=== PATIENT | male | born 1950 | race Caucasian/White ===

== ENCOUNTER 2021-09-22 12:28 | Inpatient (IN) | payer OTHER, MEDICARE ==
[~2021-09-22] VITALS: Ht 167.6 cm; Wt 68.0 kg
[2021-09-22 12:30] VITALS: BP 184/90
[2021-09-22] MEDS ORDERED: COZAAR 25 MG TA25 M1 PO (12:41)
[2021-09-22] MEDS ORDERED: MELATONIN3 M1 PO (12:41)
[2021-09-22] MEDS ORDERED: PEPCID40 MG PO (12:42)
[2021-09-22] MEDS ORDERED: SEROQUEL 25 MG25 MG PO ×2 (12:42→12:43)
[2021-09-22 12:54] LABS: ABSOLUTE NEUTROPHILS 4.2 thou/uL (1.4-8.2); BASOPHILS 0.7 % (0.0-2.0); EOSINOPHILS 2.3 % (0.0-3.0); HEMATOCRIT 30.7 % (42.0-52.0); HEMOGLOBIN 10.5 gm/dL (14.0-18.0); LYMPHOCYTES 19.2 % (24.0-44.0); MCH 29.2 pg (26.0-34.0); MCHC 34.2 g/dL (28.0-37.0); MCV 85.3 fL (80.0-100.0); MONOCYTES 4.6 % (1.0-8.0); PLATELET COUNT 315 thou/uL (150-400); POLYS 73.2 % (36.0-66.0); RBC 3.59 mil/uL (4.50-6.00); RDW 13.2 % (10.5-14.5); WBC 5.7 thou/uL (4.0-11.0)
[2021-09-22 13:04] LABS: CREATININE 2.9 mg/dL (0.7-1.3); POTASSIUM 3.5 mmol/L (3.5-5.1)
--- NOTE | 2021-09-22 13:04 | EKG ---
[place] [address] [facility] [employer] [place] [address] ELECTROCARDIOGRAM REPORT Name: SCOTT ZAVALA Room #: [facility] M.R.#: [id number] Admission: Attend Phys: Discharge: Date of : 48 Report #: [id number] [facility] [place], [place] ED Test Date: 2021-09-22 Test Time: 12:50:31 Pat Name: SCOTT ZAVALA Department: Room: Gender: Primer Inserting Machine Adjuster: : 1950 Requested By: Mary Anne Arora Order Number: [id number] MD: Maurisio Munoz Measurements Intervals Reeders Rate: 76 P: 81 VA: 164 QRS: -40 QRSD: 88 T: 60 QT: 373 QTc: 420 Interpretive Statements Sinus rhythm Left axis deviation No previous ECG available for comparison Electronically Signed On 09-22-2021 13:04:24 DIVINITY PROFESSOR by Maurisio Munoz [email or web address] <ELECTRONICALLY SIGNED> By: Maurisio Munoz MD, [facility] 09/22/21 1304 1250 1250 Maurisio Munoz MD, FACC /EPI
[2021-09-22 13:13] LABS: ALBUMIN 3.4 g/dL (3.4-5.0); TOTAL BILIRUBIN 0.7 mg/dL (0.2-1.0); TOTAL PROTEIN 6.6 g/dL (6.4-8.2)
[2021-09-22 13:15] LABS: CALCIUM 12.1 mg/dL (8.5-10.1)
[2021-09-22 14:14] LABS: URINE BILIRUBIN NEGATIVE (Negative); URINE BLOOD NEGATIVE (Negative); URINE CLARITY CLEAR; URINE COLOR YELLOW; URINE GLUCOSE-RANDOM* NEGATIVE (Negative); URINE KETONES NEGATIVE (Negative); URINE LEUKOCYTES-REFLEX NEGATIVE (Negative); URINE NITRITE-REFLEX NEGATIVE (Negative); URINE PROTEIN (DIPSTICK) NEGATIVE (Negative); URINE UROBILINOGEN 0.2 E.U./dl (0.2-1.0)
[2021-09-22 19:09] LABS: ALBUMIN 3.4 g/dL (3.4-5.0); CALCIUM 11.3 mg/dL (8.5-10.1); CREATININE 2.7 mg/dL (0.7-1.3); PHOSPHORUS 3.8 mg/dL (2.5-4.9); POTASSIUM 3.1 mmol/L (3.5-5.1)
[2021-09-23 05:59] LABS: ABSOLUTE NEUTROPHILS 6.5 thou/uL (1.4-8.2); BASOPHILS 0.5 % (0.0-2.0); HEMATOCRIT 33.2 % (42.0-52.0); HEMOGLOBIN 11.2 gm/dL (14.0-18.0); LYMPHOCYTES 10.5 % (24.0-44.0); MCH 28.8 pg (26.0-34.0); MCHC 33.7 g/dL (28.0-37.0); MCV 85.5 fL (80.0-100.0); MONOCYTES 4.2 % (1.0-8.0); PLATELET COUNT 340 thou/uL (150-400); POLYS 83.8 % (36.0-66.0); RBC 3.89 mil/uL (4.50-6.00); RDW 13.5 % (10.5-14.5); WBC 7.7 thou/uL (4.0-11.0)
[2021-09-23 06:23] LABS: % SATURATION 9 % (20-39); IRON 23 ug/dL (65-175); TIBC 257 ug/dL (250-450)
[2021-09-23 06:55] LABS: FOLIC ACID 10.4 ng/mL (8.6-58.9)
[2021-09-23] MEDS ORDERED: LOSARTAN-HCTZ1 EAC2 PO (07:54)
[2021-09-23] MEDS ORDERED: SEROQUEL 25 MG25 MG PO (08:03)
[2021-09-23 08:22] VITALS: BP 183/76
[2021-09-23 10:10] LABS: ALBUMIN 3.4 g/dL (3.4-5.0); CREATININE 2.6 mg/dL (0.7-1.3); MAGNESIUM 2.6 mg/dL (1.8-2.4); PHOSPHORUS 2.8 mg/dL (2.6-4.7); POTASSIUM 3.7 mmol/L (3.5-5.1); TOTAL BILIRUBIN 0.9 mg/dL (0.2-1.0); TOTAL PROTEIN 6.9 g/dL (6.4-8.2)
[2021-09-23 11:25] LABS: ABSOLUTE RETIC COUNT 0.0186 10^6/uL; OBSERVED RETIC COUNT 0.48 % (0.6-2.6)
[2021-09-23 19:07] LABS: PSA 6.2 ng/mL (0.0-4.0)
[2021-09-23 20:18] VITALS: BP 147/70
[2021-09-23 21:03] VITALS: BP 165/82
[2021-09-24 00:15] VITALS: BP 175/74
[2021-09-24 07:08] LABS: GLYCOHEMOGLOBIN (HGB A1C) 5.9 % (4.8-5.6)
[2021-09-24 07:55] LABS: ABSOLUTE NEUTROPHILS 6.2 thou/uL (1.4-8.2); BASOPHILS 0.7 % (0.0-2.0); EOSINOPHILS 2.7 % (0.0-3.0); HEMATOCRIT 28.8 % (42.0-52.0); HEMOGLOBIN 9.7 gm/dL (14.0-18.0); LYMPHOCYTES 13.7 % (24.0-44.0); MCH 28.8 pg (26.0-34.0); MCHC 33.6 g/dL (28.0-37.0); MCV 85.7 fL (80.0-100.0); MONOCYTES 4.5 % (1.0-8.0); POLYS 78.4 % (36.0-66.0); RBC 3.36 mil/uL (4.50-6.00); RDW 13.7 % (10.5-14.5); WBC 7.9 thou/uL (4.0-11.0)
[2021-09-24 08:08] LABS: PLATELET COUNT 260 thou/uL (150-400)
[2021-09-24 08:27] LABS: ALBUMIN 2.8 g/dL (3.4-5.0); CALCIUM 11.2 mg/dL (8.5-10.1); CREATININE 2.3 mg/dL (0.7-1.3); MAGNESIUM 2.3 mg/dL (1.8-2.4); POTASSIUM 3.2 mmol/L (3.5-5.1); TOTAL BILIRUBIN 0.8 mg/dL (0.2-1.0); TOTAL PROTEIN 6.1 g/dL (6.4-8.2)
[2021-09-24 08:29] VITALS: BP 168/79
[2021-09-24 09:21] LABS: CALCIUM 11.4 mg/dL (8.5-10.1); CREATININE 2.4 mg/dL (0.7-1.3); PHOSPHORUS 3.5 mg/dL (2.5-4.9)
[2021-09-24 12:58] VITALS: BP 168/79
[2021-09-24 14:07] LABS: CEA 1.8 ng/mL (0.0-4.7)
[2021-09-24 16:56] VITALS: BP 183/70
[2021-09-24 19:16] VITALS: BP 194/70
[2021-09-24 20:06] LABS: IgA 258 mg/dL (61-437); IgG 688 mg/dL (603-1613); IgM 41 mg/dL (15-143)
[2021-09-25 03:09] LABS: HEMATOCRIT 27.2 % (42.0-52.0); HEMOGLOBIN 9.3 gm/dL (14.0-18.0); MCH 29.6 pg (26.0-34.0); MCHC 34.3 g/dL (28.0-37.0); MCV 86.4 fL (80.0-100.0); RBC 3.15 mil/uL (4.50-6.00); RDW 13.3 % (10.5-14.5)
[2021-09-25 04:07] LABS: CALCIUM 10.7 mg/dL (8.5-10.1); CREATININE 2.1 mg/dL (0.7-1.3); POTASSIUM 3.1 mmol/L (3.5-5.1)
[2021-09-25 08:18] VITALS: BP 165/57
[2021-09-25 10:08] LABS: KAPPA FREE LIGHT CHAINS 31.9 mg/L (3.3-19.4); KAPPA/LAMBDA RATIO 1.17 (0.26-1.65); LAMBDA FREE LIGHT CHAINS 27.3 mg/L (5.7-26.3)
[2021-09-25 11:42] VITALS: BP 168/58
[2021-09-25 13:08] LABS: GLOBULIN TOTAL 2.6 g/dL (2.2-3.9); M-SPIKE Not Observed g/dL (Not Observed)
[2021-09-25 16:18] VITALS: BP 174/86
[2021-09-25 19:48] VITALS: BP 177/79
[2021-09-26 03:26] VITALS: BP 134/63
[2021-09-26 03:41] VITALS: BP 134/73
[2021-09-26 03:44] LABS: HEMATOCRIT 26.7 % (42.0-52.0); HEMOGLOBIN 9.2 gm/dL (14.0-18.0); MCHC 34.5 g/dL (28.0-37.0); RBC 3.19 mil/uL (4.50-6.00); RDW 13.2 % (10.5-14.5); WBC 6.7 thou/uL (4.0-11.0)
[2021-09-26 04:58] LABS: ALBUMIN 2.6 g/dL (3.4-5.0); CALCIUM 9.6 mg/dL (8.5-10.1); CREATININE 1.8 mg/dL (0.7-1.3); PHOSPHORUS 2.7 mg/dL (2.5-4.9); POTASSIUM 3.4 mmol/L (3.5-5.1)
[2021-09-26 07:14] VITALS: BP 157/82
[2021-09-26 15:08] LABS: KAPPA/LAMBDA RATIO 1.16 (0.26-1.65); LAMBDA FREE LIGHT CHAINS 27.7 mg/L (5.7-26.3)
[2021-09-26 15:11] VITALS: BP 156/77
[2021-09-26 18:57] VITALS: BP 173/78
[2021-09-27 07:00] VITALS: BP 162/90
[2021-09-27 07:44] LABS: HEMATOCRIT 30.8 % (42.0-52.0); HEMOGLOBIN 10.2 gm/dL (14.0-18.0); MCH 28.5 pg (26.0-34.0); MCHC 33.3 g/dL (28.0-37.0); MCV 85.6 fL (80.0-100.0); RBC 3.6 mil/uL (4.50-6.00); RDW 13.1 % (10.5-14.5); WBC 6.4 thou/uL (4.0-11.0)
[2021-09-27 08:02] LABS: ALBUMIN 2.7 g/dL (3.4-5.0); CALCIUM 9.9 mg/dL (8.5-10.1); CREATININE 1.7 mg/dL (0.7-1.3); PHOSPHORUS 2.5 mg/dL (2.6-4.7); POTASSIUM 3.5 mmol/L (3.5-5.1)
[2021-09-27 13:00] VITALS: BP 165/85
[2021-09-27 13:01] VITALS: BP 165/85
[2021-09-27 15:06] VITALS: BP 173/90
[2021-09-27] MEDS ORDERED: CLONIDINE1 EACH TRANSDERM (15:38)
[2021-09-27] MEDS ORDERED: FLOMAX0.4 MG PO (15:38)
[2021-09-27] MEDS ORDERED: SEROQUEL 50 MG50 MG PO (15:41)
[2021-09-27] MEDS ORDERED: SEROQUEL 25 MG25 M1 PO ×2 (15:41)
[2021-09-27 16:57] VITALS: BP 173/90
--- NOTE | 2021-10-04 11:51 | HC ---
[facility] [place] [address] CONSULTATION Name: SCOTT ZAVALA Room #: 452-P [facility] M.R.#: [id number] Admission: 09/22/21 Attend Phys: Sayda Montenegro MD Discharge: 09/27/21 Date of : 48 Report #: [id number] THIS REPORT FOR: cc: Joselyn Gonsales MD, Nicolle MD Khosla,Manuel Collado MD ~ DATE OF SERVICE: 09/23/2021 HISTORY OF PRESENT ILLNESS: This is a 71-year-old male patient who was evaluated by me for a confusing history. He is completely sedated and he will not even talk to me. He will not wake up for me. He will not move anything for me. No family member is here and the history is from the record as well as talking to Dr. Montenegro. I reviewed the notes also. This patient was admitted with aggressive behavior. On evaluation, he was found to have hypercalcemia. Either he has urinary incontinence or he has increased frequency of the urine and he has been urinating all over the place as I understand. He is worried that he has a UTI. He was also noticed to be in renal failure and the patient's is also admitted and we have been unable to contact her. Hypercalcemia has been persistent and in spite of giving him a significant amount of fluids, hypercalcemia persists. He received multiple sedating medications and I could not wake him up. REVIEW OF SYSTEMS: Indicates that he had some yessica. He had some scalp laceration. He had some injury there, but I do not know what workup was done because I do not have any records in that regard. I do not know whether the patient's spine was checked or not that time. Apparently, the best I understand he was living at home, then he has this pretty acute in onset of this problem and then he was diagnosed with dementia. I do not know how established the diagnosis of dementia was. He was here for agitation and combative behavior. This is all 14-point review of system, I can get. PAST MEDICAL HISTORY: Unavailable except as summarized above. Apparently, he does have some chronic kidney disease. FAMILY HISTORY: Unavailable. SOCIAL HISTORY: He has a , but is also admitted to the hospital and we have not been able to reach the . PHYSICAL EXAMINATION: GENERAL: Very limited. He did not wake up. He did not say a single word. He does not appear to be in respiratory distress. He does not move anything and he can take appropriate position for reflexes. CARDIAC: Unremarkable. RESPIRATORY: Unremarkable. VITAL SIGNS: Blood pressure is 129/64, respirations 23, pulse is 76. [facility] [address] [place] [address] CONSULTATION Name: SCOTT ZAVALA Room #: 452-P [facility] M.R.#: [id number] Admission: 09/22/21 Attend Phys: Sayda Montenegro MD Discharge: 09/27/21 Date of : 48 Report #: [id number] LABORATORY DATA: White count is 7.7. He does not appear to have any UTI. He did have a CT scan of the head on admission, which showed diffuse atrophy and yessica. IMPRESSION AND PLAN: I discussed with Dr. Montenegro. As I understand, his yessica can come out. If it can come out, we can try to do some workup. MRI and EEG will be the mainstay of the workup. However, the patient is not moving much as far as his arms or legs is concern and because of that, I think it may be desirable to do the C-spine to make sure he did not injure his spine. Thank you very much for this referral and we will follow the patient along with you. <ELECTRONICALLY SIGNED> By: Manuel Deutsch MD 10/04/21 1151 1253 2231 Manuel Deutsch MD /nt
== END 2021-09-27 18:00 | DRG 91 ==
LOC: ER 12:28 → EROBS 15:14 → 4S 15:14 → 4W 09-26 04:59
PROVIDERS: Hospitalist; Internal Medicine; Physician Assistant; ADMIT Internal Medicine; ATTEND Internal Medicine
DX: G92.8 Other toxic encephalopathy (principal); N17.0 Acute kidney failure with tubular necrosis; E83.52 Hypercalcemia; E87.6 Hypokalemia; D50.9 Iron deficiency anemia, unspecified; Z20.822 Contact with and (suspected) exposure to COVID-19; F03.90 Unspecified dementia, unspecified severity, without behavioral disturbance, psychotic disturbance, mood disturbance, and anxiety; K21.9 Gastro-esophageal reflux disease without esophagitis; N40.0 Benign prostatic hyperplasia without lower urinary tract symptoms; N18.30 Chronic kidney disease, stage 3 unspecified; I16.0 Hypertensive urgency; Z66 Do not resuscitate; Z77.29 Contact with and (suspected) exposure to other hazardous substances; R41.0 Disorientation, unspecified; E86.0 Dehydration; R53.81 Other malaise; R26.89 Other abnormalities of gait and mobility; I12.9 Hypertensive chronic kidney disease with stage 1 through stage 4 chronic kidney disease, or unspecified chronic kidney disease; T50.2X5A Adverse effect of carbonic-anhydrase inhibitors, benzothiadiazides and other diuretics, initial encounter; T45.2X5A Adverse effect of vitamins, initial encounter; Y92.89 Other specified places as the place of occurrence of the external cause; Z79.899 Other long term (current) drug therapy
CPT/HCPCS: 10045; 10100

== ENCOUNTER 2021-09-27 16:41 | Inpatient (IN) | payer OTHER, MEDICARE ==
[~2021-09-27] VITALS: Ht 167.6 cm; Wt 68.0 kg
[~2021-09-27 16:41] MED LIST: CLONIDINE1 EACH TRANSDERM; COZAAR 25 MG TA25 M1 PO; FLOMAX0.4 MG PO; LOSARTAN-HCTZ1 EAC2 PO; MELATONIN3 M1 PO; PEPCID40 MG PO; SEROQUEL 25 MG25 M1 PO; SEROQUEL 25 MG25 MG PO; SEROQUEL 50 MG50 MG PO
[2021-09-27 17:07] VITALS: BP 173/83
[2021-09-27 18:12] VITALS: BP 151/98
[2021-09-27 18:20] VITALS: BP 151/98
[2021-09-27 21:30] VITALS: BP 156/82
[2021-09-28 05:40] LABS: HEMATOCRIT 31.2 % (42.0-52.0); HEMOGLOBIN 10.5 gm/dL (14.0-18.0); MCH 28.7 pg (26.0-34.0); MCHC 33.6 g/dL (28.0-37.0); MCV 85.5 fL (80.0-100.0); RBC 3.64 mil/uL (4.50-6.00); RDW 13.1 % (10.5-14.5); WBC 8.5 thou/uL (4.0-11.0)
[2021-09-28 05:55] LABS: CALCIUM 9.9 mg/dL (8.5-10.1); CREATININE 1.8 mg/dL (0.7-1.3); POTASSIUM 3.2 mmol/L (3.5-5.1)
[2021-09-28 06:25] LABS: ALBUMIN 3.1 g/dL (3.4-5.0); PHOSPHORUS 2.8 mg/dL (2.5-4.9)
[2021-09-28 10:34] VITALS: BP 160/94
[2021-09-28 20:00] VITALS: BP 136/64
[2021-09-30 08:40] VITALS: BP 123/66
[2021-09-30 20:45] VITALS: BP 146/65
[2021-10-01 05:54] LABS: ABSOLUTE NEUTROPHILS 4.2 thou/uL (1.4-8.2); HEMATOCRIT 27.6 % (42.0-52.0); HEMOGLOBIN 9.4 gm/dL (14.0-18.0); LYMPHOCYTES 23.1 % (24.0-44.0); MCH 28.6 pg (26.0-34.0); MCV 84.2 fL (80.0-100.0); MONOCYTES 7.2 % (1.0-8.0); PLATELET COUNT 342 thou/uL (150-400); POLYS 63.7 % (36.0-66.0); RBC 3.28 mil/uL (4.50-6.00); RDW 13.2 % (10.5-14.5); WBC 6.7 thou/uL (4.0-11.0)
[2021-10-01 05:59] LABS: CALCIUM 9.8 mg/dL (8.5-10.1); CREATININE 1.9 mg/dL (0.7-1.3); MAGNESIUM 2.1 mg/dL (1.8-2.4); POTASSIUM 3.6 mmol/L (3.5-5.1)
[2021-10-01 08:00] VITALS: BP 122/70
[2021-10-02 08:00] VITALS: BP 119/61
[2021-10-02 15:22] LABS: URINE BILIRUBIN NEGATIVE (Negative); URINE BLOOD TRACE (Negative); URINE CLARITY CLEAR; URINE COLOR YELLOW; URINE GLUCOSE-RANDOM* TRACE (Negative); URINE KETONES NEGATIVE (Negative); URINE NITRITE-REFLEX NEGATIVE (Negative); URINE PROTEIN (DIPSTICK) NEGATIVE (Negative); URINE UROBILINOGEN 0.2 E.U./dl (0.2-1.0)
[2021-10-02 15:25] LABS: URINE LEUKOCYTES-REFLEX 1+ (Negative)
[2021-10-02 16:50] LABS: CASTS None Seen /LPF (None Seen); SQUAMOUS 0-3 Few /LPF (0-3); URINE RBC 1-2 Rare /HPF (NONE SEEN); URINE WBC-REFLEX >25 Many /HPF (0-5); WBC CLUMPS Few (None Seen)
[2021-10-02 16:51] LABS: CRYSTALS None Seen /LPF (None Seen)
[2021-10-02 19:37] VITALS: BP 169/93
[2021-10-03 08:00] VITALS: BP 126/62
[2021-10-03 19:37] VITALS: BP 141/79
[2021-10-04 05:55] LABS: BASOPHILS 0.5 % (0.0-2.0); HEMATOCRIT 27.4 % (42.0-52.0); HEMOGLOBIN 9.2 gm/dL (14.0-18.0); LYMPHOCYTES 12.6 % (24.0-44.0); MCH 28.4 pg (26.0-34.0); MCHC 33.4 g/dL (28.0-37.0); MCV 85.1 fL (80.0-100.0); MONOCYTES 4.8 % (1.0-8.0); PLATELET COUNT 372 thou/uL (150-400); POLYS 80.1 % (36.0-66.0); RBC 3.22 mil/uL (4.50-6.00); RDW 13.4 % (10.5-14.5); WBC 11.3 thou/uL (4.0-11.0)
[2021-10-04 06:12] LABS: CREATININE 1.7 mg/dL (0.7-1.3); MAGNESIUM 2.1 mg/dL (1.8-2.4)
[2021-10-04 07:11] VITALS: BP 118/56
[2021-10-04 17:25] VITALS: BP 136/56
[2021-10-04 21:17] VITALS: BP 121/65
[2021-10-05 08:00] VITALS: BP 132/70
[2021-10-05 20:00] VITALS: BP 115/61
[2021-10-06 07:30] VITALS: BP 123/57
[2021-10-06 19:35] VITALS: BP 117/51
[2021-10-07 08:00] VITALS: BP 120/61
[2021-10-07 13:25] LABS: HEMATOCRIT 29.9 % (42.0-52.0); HEMOGLOBIN 9.8 gm/dL (14.0-18.0); MCH 28.3 pg (26.0-34.0); MCHC 32.7 g/dL (28.0-37.0); MCV 86.3 fL (80.0-100.0); RBC 3.47 mil/uL (4.50-6.00); RDW 13.7 % (10.5-14.5); WBC 6.1 thou/uL (4.0-11.0)
[2021-10-07 13:52] LABS: ALBUMIN 2.6 g/dL (3.4-5.0); CALCIUM 11.6 mg/dL (8.5-10.1); CREATININE 2.2 mg/dL (0.7-1.3); POTASSIUM 4.2 mmol/L (3.5-5.1); TOTAL BILIRUBIN 0.2 mg/dL (0.2-1.0); TOTAL PROTEIN 7.1 g/dL (6.4-8.2)
[2021-10-07 20:21] VITALS: BP 169/87
[2021-10-08] MEDS ORDERED: SEROQUEL 50 MG50 MG PO (12:23)
[2021-10-08] MEDS ORDERED: COLACE100 MG PO (12:23)
[2021-10-08] MEDS ORDERED: DIVALPROEX SOD250 M3 PO (12:23)
[2021-10-08] MEDS ORDERED: SEROQUEL 25 MG25 M1 PO ×2 (12:23)
[2021-10-08] MEDS ORDERED: DEPAKOTE500 MG PO (12:23)
[2021-10-08] MEDS ORDERED: SEROQUEL 25 MG25 MG PO (12:24)
[2021-10-08] MEDS ORDERED: LEVOFLOXACIN500 MG PO (12:24)
[2021-10-08 19:14] VITALS: BP 117/63
[2021-10-09 06:42] LABS: ABSOLUTE NEUTROPHILS 4.7 thou/uL (1.4-8.2); BASOPHILS 1.3 % (0.0-2.0); HEMATOCRIT 26.3 % (42.0-52.0); HEMOGLOBIN 8.8 gm/dL (14.0-18.0); LYMPHOCYTES 18.6 % (24.0-44.0); MCH 28.4 pg (26.0-34.0); MCHC 33.4 g/dL (28.0-37.0); MCV 85.1 fL (80.0-100.0); MONOCYTES 5.2 % (1.0-8.0); PLATELET COUNT 395 thou/uL (150-400); POLYS 72.9 % (36.0-66.0); RBC 3.09 mil/uL (4.50-6.00); RDW 13.2 % (10.5-14.5); WBC 6.4 thou/uL (4.0-11.0)
[2021-10-09 06:57] LABS: CALCIUM 10.1 mg/dL (8.5-10.1); MAGNESIUM 2.1 mg/dL (1.8-2.4); POTASSIUM 4.4 mmol/L (3.5-5.1)
[2021-10-09 08:00] VITALS: BP 117/63; BP 121/69
[2021-10-09 11:32] VITALS: BP 117/63
[2021-10-09 11:33] VITALS: BP 117/63
== END 2021-10-09 11:30 | DRG 947 ==
PROVIDERS: Nurse Practitioner; Nurse Practitioner Family; Psychiatry & Neurology Psychiatry; ADMIT Physical Medicine & Rehabilitation; ATTEND Physical Medicine & Rehabilitation
DX: R53.81 Other malaise (principal); G92.8 Other toxic encephalopathy; N17.9 Acute kidney failure, unspecified; N39.0 Urinary tract infection, site not specified; E83.52 Hypercalcemia; N18.30 Chronic kidney disease, stage 3 unspecified; E87.6 Hypokalemia; Z66 Do not resuscitate; Z20.822 Contact with and (suspected) exposure to COVID-19; D50.9 Iron deficiency anemia, unspecified; R26.89 Other abnormalities of gait and mobility; K21.9 Gastro-esophageal reflux disease without esophagitis; F03.90 Unspecified dementia, unspecified severity, without behavioral disturbance, psychotic disturbance, mood disturbance, and anxiety; N40.0 Benign prostatic hyperplasia without lower urinary tract symptoms; R41.0 Disorientation, unspecified; I12.9 Hypertensive chronic kidney disease with stage 1 through stage 4 chronic kidney disease, or unspecified chronic kidney disease; Z28.21 Immunization not carried out because of patient refusal
CPT/HCPCS: 10112

== ENCOUNTER 2021-10-08 12:22 | Inpatient (IN) | payer OTHER, MEDICARE ==
[~2021-10-08] VITALS: Ht 172.7 cm; Wt 49.6 kg
[2021-10-08] MEDS ORDERED: SEROQUEL 50 MG50 MG PO (12:23)
[2021-10-08] MEDS ORDERED: DEPAKOTE500 MG PO (12:23)
[2021-10-08] MEDS ORDERED: SEROQUEL 25 MG25 M1 PO ×2 (12:23)
[2021-10-08] MEDS ORDERED: COLACE100 MG PO (12:23)
[2021-10-08] MEDS ORDERED: DIVALPROEX SOD250 M3 PO (12:23)
[2021-10-08] MEDS ORDERED: SEROQUEL 25 MG25 MG PO (12:24)
[2021-10-08] MEDS ORDERED: LEVOFLOXACIN500 MG PO (12:24)
[2021-10-09 12:29] LABS: CHOLESTEROL 135 mg/dL (<200); HDL CHOLESTEROL 30 mg/dL (>40); LDL CHOLESTEROL 91 mg/dL (<100); TC:HDL 4.5 Ratio (Not establshd); TRIGLYCERIDE 74 mg/dL (<150); VLDL 15 mg/dL (<40)
[2021-10-09 13:01] VITALS: BP 118/70
--- NOTE | 2021-10-09 13:24 | NUR ---
TO FLOOR AT APPROX 1130 71 YEAR OLD MALE-ARRIVES VIA WC FROM REHAB UNIT ACCOMPNIED BY REHAB NURSING STAFF. PER INTAKE ASSESSMENT REPORTED TO BE AGITATED AND AGGRESSIVE SINCE ADMIT TO REHAB .ATTEMTPING TO ELOPE FROM UNIT-REFUSING THERAPIES AND CARES AND BECOMING COMBATIVE WITH NURSING STAFF. IS COOPERATIVE WITH ADMIT INTERVIEW-ORIENTED TO PERSON,PLACE BUT IDENTIFIES THE DATE 05/25. ABLE TO GIVE SOME RELEVENT HX AND RESPONSES ARE RELEVENT TO QUESTIONS ASKED-IS UNABLE TO STATE WHERE HE WAS LIVING PRIOR TO HOSPITAL ADMIT GIVING AN ADDRESS INSTEAD.STATES HE IS GETTING A DIVORCE AND THEN STATES "HAVE I TOLD YOU ABOUT MY GIRLFRIEND" APPEARS ACCEPTING OF HOSPITAL STAY-AND STATES SEVERAL TIMES "I WILL DO ANYTHING YOU WANT ME TO DO-I AM HERE TO COOPERATE" STATES HE HAS NO RECALL OF BECOMING ANGRY AND STRIKING OUT AT REHAB STAFF-AND THEN STATES "MAYBE I WAS UPSET BECAUSE I FELL"VS OBTAINED-BELONGINGS SECURED-ORIENTED TO ROOM AND UNIT. PROVIDED LUNCH AND ATE 100 PERCENT OF MEAL. DENIES PAIN/DISCOMFORT. DENIES SI/SH/HI. NO ACUTE ANXIETY NOTED OR REPORTED. NO A/V HALLUCINATIONS/PARANOIA OR DELUSIONS NOTED DURING INTERVIEW. DESCRIBES MOOD "DECENT" DENIES DISTURBANCE OF SLEEP AND APPETTITE.
--- NOTE | 2021-10-09 14:49 | NUR ---
SITTING IN DAYROOM WITH PEERS DURING 1400 GROUP-INITIALLY COOPERATIVE AND CALM BUT INCREASINGLY RESTLESS ROLLING WC AROUND DAYROOM BUMPING INTO OTHERS AND ATTEMPTING TO GET UP MULTIPLE TIMES-BECOMES ARGUMENTATIVE AND NOTED INCREASED AGITATION WITH NURSING STAFF ATTEMPT TO REDIRECT/REASSURE-WHEELING WC RAPIDLY IN HALLWAYS AND ENTERS FEMALE PEER ROOM-WHEN STAFF ATTEMPT TO PULL WC OUT OF ROOM STRIKES OUT AT NURSE -HITING WITH OPEN PALM IN ABDOMEN-THEN GOT OUT OF WC AND CRAWLED ON FLOOR ATTEMPTING TO GET UNDER HOSPITAL BED HE SAW HIS CAT TJ RUN UNDER THERE AND SHE WAS "STUCK IN A TUBE" MULTIPLE ATTEMPTS TO REORIENT TO REALITY-DISTRACT ETC MET WITH RESISTNCE AND INCXREASED YELLING AND DISTRESS. DR SRINIVASAN CONTACTED-SECURITY CONTACTED AND GIVEN STIVAN IM IN RIGHT DELTOID WITH MINIML RESISTANCE. P;ZAK IN GERICHAIR WITH JUANCARLOS GAO AND TAKEN TO ROOM AT APPROX 1435. ONCE IN ROOM DOES APOLOGIZE TO STAFF STATING HE "ACCIDENTLY" DUG HIS NAILS INTO NURSES LEG-CONTINUES TO INSIST THAT CAT IS IN THE HOSPITAL AND UNDER THE BED-LAP STAFF 1;1 IN ROOM WITH PT FROM APPROX 1440 TO 1453 WHEN JUANCARLOS GAO REMOVED
--- NOTE | 2021-10-09 18:21 | NUR ---
HAS BEEN RESTING IN [facility] IN DAYROOM SINCE APPROX 1500.DEEP SNORING RESPIRATIONS-IS ROUSABLE TO VERBAL STIMULI BUT QUICKLY RETURNS TO SLEEP
--- NOTE | 2021-10-10 03:34 | NUR ---
At onset of shift nurse manager pt was sleeping in myrna chair in day room. Pt was asleep but arousable. Pt shook his head "no" when asked if he was in pain. Other than this pt did not communicate with RN. Pt kept his eyes closed while RN completed physical assessment. Pt was compliant with medication and vital signs. RN attempted to have pt swallow half a pill to assess pt's swallowing. Pt insteady chewed the pill. RN crushed the rest of pt's meds and mixed with applesauce instead. Pt was able to swallow this. Pt was offered juice and water but would not drink. Pt was helped to bed by CLAM SHOVEL OPERATOR. Pt is high fall risk. Fall precautions are in place. Will continue to monitor.
[2021-10-10 10:09] VITALS: BP 161/68
--- NOTE | 2021-10-10 12:49 | NUR ---
Primary nursing care done by Joanne Bruno LPN Laying in bed with eyes half closed. Orientated to name only. Denies SI/HI. States he does not want to eat lunch. Primary nurse aware. Breath sounds clear. Reg HR auscultated. Color pink with brisk capillary refill and palpable peripheral pulses. No edema noted. Brief dry. Active bowel sounds over soft, flat abdomen.
[2021-10-10 13:08] VITALS: BP 161/68
--- NOTE | 2021-10-10 13:53 | NUR ---
Resummed care @0700; Patient was located in his room lying in bed comfortably; Patient was assisted out of bed for breakfast; After breakfast patient wanted to go back to bed; A&O*1 - Confused; No acute S/O distress noted; Patient presents to CANDY MAKER with a flat affect; Patient orginally was approched by CANDY MAKER, MD Ann, and MAIA Crandall in his room. Patient was asked how he was doing, no response was given. CANDY MAKER then asked if he had any concerns to voice to me, Pt. stated " Fuck You." Patient was very hateful at first interaction. Once the Surg Physician Asst and MD left the room, CANDY MAKER sat on the floor next to patient. Patient was still hateful & frustrated; Once CANDY MAKER was able to build a trust with patient, he began to open up. Patient voiced feelings of hopelessness, states " The fuck should I fight for anymore." Patient voiced feelings of not wanting to fight for anything anymore. V/S present hypertensive 161/68 otherwise stable on RoomAir; Lungs clear bilaterally; BSP*4-NT-ND; Incont. B&B; Patients ambulatory status is in question. CANDY MAKER was reported to that patient is a Max Assist, and unable to bear weight. Although Pt/Ot reports patient was a Standby Assist prior to discharge from . CANDY MAKER believes patients ambulatory status is behavior based; High-Fall precautions are in place, will continue to monitior per [facility] protocol;
--- NOTE | 2021-10-10 16:41 | NUR ---
Meeting with patient and Dr. Ann. Patient was walking with walker and was assisted by Dr. Ann to his room. Patient was slow in walking. SW and doctor waited for the patient to be seen by the hospitalist. After the hospitalist, the SW and doctor Ann attempted to do a SLUMS with the patient but the patient responded harshly. The SW asked the patient if there was anything he needed. The patient responded, "fuck you".
--- NOTE | 2021-10-10 18:17 | NUR ---
@1758 Patient had an unwitnessed fall; Patient SHAREPOINT APPLICATION DEVELOPER was seated at Nurses station, when patient fell. A nag was heard from patients room. Upon arrival, patient was located on the floor, outside of the bed. Walker was lying bedside him on its side. Patient was on all fours. V/S were obtained - BP: 157/69 Sitting Right Arm HR:112 O2-99% Temp-97.8 RR-19 MAP-90. Pupils were equal, reactive, brisk. Full body assessment was completed, no signs of reddness, skin tears, or trauma were noted to the body. When SHAREPOINT APPLICATION DEVELOPER asked the patient what he was doing, patient stated " I was getting my breakfast." Patient denied being in any pain, States to SHAREPOINT APPLICATION DEVELOPER " I'm sorry, I didn't mean to cause any problems. I just slipped on my fucking sock." notified and laid eyes on patient at 1810. High Fall Precautions were in place at the time of fall. Yellow non-skid socks, Yellow Tshirt, Yellow door sign, Yellow Fall-Risk band, Bed Alarm was armed although not sounding. SHAREPOINT APPLICATION DEVELOPER and PUBLIC SERVICE ADMINISTRATOR noted alarm not sounding. Patient is now seated in the dinning room, with chair alarm on. With blanket, resting watching TV. Still no complaints verbalized to SHAREPOINT APPLICATION DEVELOPER or staff at this time.
[2021-10-10 18:33] VITALS: BP 157/69
[2021-10-10 19:05] VITALS: BP 164/78
--- NOTE | 2021-10-11 04:29 | NUR ---
PATIENT IS AAOX1 AT BEST. HE HAS DIFFICULTY FOLLOWING COMMANDS AND PROMPTS. PATIENT IS HAVING HALLUCINATIONS POINTING AT THE "MAN IN BLUE" TELLING US TO GET HIM. PATIENT WILL NOT SIT IN HIS CHAIR NOR STAY IN HIS BED. STAFF HAS ATTEMPTED TO REDIRECT PATIENT WITHOUT SUCCESS. AT ONE POINT CARLO FLIPPED OVER A TABLE HE WAS TRYING TO CLIMB OUT OF HIS CHAIR. NOTIFIED PROVIDER AND RECEIVED ORDER FOR HALDOL 4MG IMX1 AND ATIVAN 0.5MG IMX1. WITHON ABOUT 30 MINUTES THE PATIENT WAS CALM AND WAS ABLE TO SIT STILL IN HIS CHAIR. PATIENT WAS TRANSFERRED TO HIS BED WHERE HE WAS ABLE TO REST WELL. NO S/S OF DISTRESS NOTED AFTER INJECTION. WILL CONTINUE TO MONITOR PATIENT FOR CHANGES IN PATIENT STATUS.
[2021-10-11 05:52] LABS: ABSOLUTE NEUTROPHILS 3.4 thou/uL (1.4-8.2); EOSINOPHILS 3.4 % (0.0-3.0); HEMATOCRIT 27.1 % (42.0-52.0); HEMOGLOBIN 9.2 gm/dL (14.0-18.0); MCH 28.8 pg (26.0-34.0); MCV 84.8 fL (80.0-100.0); MONOCYTES 6.1 % (1.0-8.0); PLATELET COUNT 347 thou/uL (150-400); POLYS 61.5 % (36.0-66.0); RDW 13.4 % (10.5-14.5); WBC 5.6 thou/uL (4.0-11.0)
[2021-10-11 06:26] LABS: CALCIUM 10.8 mg/dL (8.5-10.1); CREATININE 1.9 mg/dL (0.7-1.3); MAGNESIUM 2.3 mg/dL (1.8-2.4); POTASSIUM 3.4 mmol/L (3.5-5.1)
[2021-10-11 09:05] VITALS: BP 136/61
--- NOTE | 2021-10-11 13:30 | NUR ---
ON INITIAL APPROACH THIS AM NOTED TO BE RESTING QUIETLY IN BED-EYES CLOSED-DEEP SNORING RESPIRATIONS NOTED. DID WAKEN BRIEFLY TO DRINK WATER BUT WHEN OFFERED SCHEDULED AM MEDS AND BREAKFAST-TURNS HEAD AWAY AND CLOSESYES TIGHTLY-REFUSING TO SPEAK TO NURSE OR OPEN EYES OR MOUTH TO VERBAL COMMANDS. Q 12 MIN CHECKS PER UNIT POLICY AND APPEARS TO BE RESTING UNTIL APPROX 1100 WHEN NOTED TO BE LYING IN BED STARING STRAIGHT UP AT CEILING-WITH MUCH ENCOURAGEMENT DID TAKE 2 BITES OF AM MEDS IN APPLESAUCE-KCL PUT WITH APPLE JUICE AND DRANK APPROX 1/2-3/4 BEFORE CLOSING MOUTH TIGHTLY AND REFUSING REMAINDER. SEO STRATEGIST NOTIFIED OF THIS AND NO ADDITIONAL KCL ORDERED-O RECEIVED TO CONTINUE TO PUSH PO FLUIDS. PT CONTINUES TO REFUSE TO SPEAK TO STAFF NODS HEAD NO WHEN ASKED IF HE WANTED TO GET UP. DID EVENTUALLY AGREE TO GET UP AT 1230 AND IS CURRENTLY EATING-TAKING PO FLUIDS WELL
--- NOTE | 2021-10-11 14:17 | NUR ---
DID EAT 20 PERCENT OF LUNCH WITH ASSIST/PROMPTING-TOOK ENSURE ,CHOCOLATE MILK AND OARNGE JUICE OVER THE COURSE OF 1-2 HOURS -CONTINUES TO BE MINIMALLY VERBAL-ANGRY FACIAL EXPRESSION-INCONTINENT OF URINE,RESISTIVE WITH BRIEF CHANGE BUT 2 STAFF WERE ABLE TO PROVIDE INCONTINENT [id number] TO GET UP FROM CHAIR WITHOUT ASSIST-APPEARS TO BE HALLUCINATING-TALKING ABOUT A MAN WHO HE SEES DOWN THE HALLWAY AND HE NEEDS TO TALK TOO-POINTING DOWN HALLWAYAT THIS MAN-BUT NO ONE VISIBLE
--- NOTE | 2021-10-11 15:58 | NUR ---
INCREASINGLY ANXIOUS STARTING AT APPROX 1430-ATTTEMPTING TO GET UP OUT OF CHAIR-APPEARS TO BE HALLUCINATING-GESTURING AT UNSEEN OTHERS IN HALLWAY-WALKED TO TOILET WITH USE OF ROLLER WALK BUT HAD ALREADY BEEN INCONTINENT OF LARGE AMOUNT OF URINE IN BRIEF-VERY APOLOGETIC TO NURSING STAFF-APPROX 10 MINUTES LATER APPROACHED WITH SCHEDULED MEDICATION CRUSHED IN YOGURT AND STRUCK OUT AT NURSING STAFF YELLING LOUDLY-"GET AWAY FROM ME"DID LATER TAKE SCHEDULED MEDICATION IN ICE CREAM FROM [facility]
--- NOTE | 2021-10-11 17:03 | NUR ---
Family meeting with Dr. Ann, MAIA and Cuca. Michael Carlos was not available for the meeting. Dr. Teja Bass joined after Dr. Ann had to leave. Dr. Ann explained to Cuca that the patient is in need of a guardian as he currently cannot consent to a DPOA and the hospital cannot initiate a guardian [place]. Dr. Ann explained that the hospital is unable to place the patient or if steps are not being made for guardianship and/or placement, then we would have to look at discharging the patient back home. Cuca reported to wanting to sell her home to cover the cost of a facility for the patient. The patient's name is on the house and checking accounts. Cuca reported to having finances to look into placement for the patient. Dr. Teja Bass joined after Dr. Ann had to leave. Dr. Bass expressed concern that the patient has not been seen by a neurologist. The SW informed Dr. Bass that he could address the concern with Dr. Ann. The SW further stated that we needed to look into having a safe discharge for the patient. Dr. Bass feels Cuca would be a good person to be guardian for the patient.
[2021-10-11 19:44] VITALS: BP 154/84
--- NOTE | 2021-10-11 23:35 | NUR ---
At onset of team assistant pt was sitting in day room in myrna chair. Pt had his legs up on the table and RN and TOOTH CUTTER CONTACT WHEEL repositioned pt into chair correctly. Pt was only oriented to self. Pt stated he was in [place], [place] and needed to rent a car to drive to [place], [place]. Pt did not state the correct date. Pt was compliant with eating medication mixed in ice cream. Pt's affect was flat and pt would stare wide-eyed at ceiling, making no eye contact with RN. Pt's speech was soft. Pt denied feeling pain and stated he was in a good mood. Pt is a high fall risk and is impulsive. Fall precautions are in place. Pt was placed into bed at bedtime. During rounds pt was observed laying in bed awake staring at ceiling; RN asked pt if he needed anything and pt responded no. Will continue to monitor.
[2021-10-12 12:47] VITALS: BP 162/84
--- NOTE | 2021-10-12 13:30 | NUR ---
@1315 Patient became hostile with MACHINE PLATE STACKER staff in the dinning area; Patient noted pushing his table into the patient across from him; Patient stating " I needed to get out of here." " I'm leaving." HULL OUTFIT SUPERVISOR attempted to redirect patient verbally. Patient calmed down and held conversation with HULL OUTFIT SUPERVISOR, then within seconds patient became flat affected, constricted and stated "Bitch were getting the fuck out of here. " Patient then wrapped his legs around HULL OUTFIT SUPERVISOR and squeezed them together. HULL OUTFIT SUPERVISOR was able to get out of patients weight shifter and patient then proceeded to stomp on LPNs feet. Repeating " We're getting the fuck out of here." JAYE Mendoza contacted @1320; Verbal orders given for 5mg Haldol IM with Mannual hold. Injection was successful first time, No injuries were sustained to patient or staff. Mannual hold was not used for this injection - patient was compliant with injection. Will continue to monitior;
--- NOTE | 2021-10-12 14:43 | NUR ---
Resummed Care @0700; Patient located in his room, resting comfortably in bed. Patient refused his breakfast. A&O*1- Intermittent disorientation*4; Denies SI/HI/AVH. Denied Pain, SOB, CP. CONCRETE BOOM OPERATOR visualized the patient responding to internal stimuli, when conversating. Patient when in his room stairs blankly at the ceiling with eyes wide open, Constricted. CONCRETE BOOM OPERATOR notes the patients behaviors switch very suddenly. BSP*4.NT.ND. Lung sounds clear, BCRF. V/S present hypertensive 162/84, otherwise stable. Patient presents Impulsive, Frail, ill, drowsy. Gait is visualized unsteady, shuffled. *1 assist with transfers, ambulates with [id number]. Patients ambulatory status veries with behaviors. High-Fall risk precautions are in place; Will continue to monitior per [facility] protocol;
[2021-10-12 15:52] VITALS: BP 164/80
[2021-10-12 15:53] VITALS: BP 164/80
--- NOTE | 2021-10-13 00:23 | NUR ---
At onset of retail shift supervisor pt was sitting in myrna chair awake with lap devi fastened safely in the front. This shift pt was alert and oriented to self. When asked where pt is pt stated "up the street." Pt gave the date as the , but could not give the month or year. Pt did talk to nurse more this shift and appeared more alert. Pt stayed in day room through out the night and did not sleep well. Pt was wide-eyed and stared at ceiling for most of the night. Pt denied SI, HI and AVH. Pt was calm and pleasant with freelance copywriter. Took medications mixed in ice cream and comliant with vital signs. Pt is restless at times. Pt is very high fall risk. Fall precautions are in place. Will continue to monitor.
[2021-10-13 06:16] LABS: ALBUMIN 2.6 g/dL (3.4-5.0); CREATININE 2.1 mg/dL (0.7-1.3); POTASSIUM 4.4 mmol/L (3.5-5.1); TOTAL BILIRUBIN 0.2 mg/dL (0.2-1.0); TOTAL PROTEIN 6.6 g/dL (6.4-8.2)
[2021-10-13 07:25] LABS: ABSOLUTE NEUTROPHILS 4.4 thou/uL (1.4-8.2); BASOPHILS 1.4 % (0.0-2.0); EOSINOPHILS 2.7 % (0.0-3.0); HEMATOCRIT 28.2 % (42.0-52.0); HEMOGLOBIN 9.5 gm/dL (14.0-18.0); LYMPHOCYTES 19.9 % (24.0-44.0); MCH 28.5 pg (26.0-34.0); MCHC 33.6 g/dL (28.0-37.0); MONOCYTES 7.3 % (1.0-8.0); PLATELET COUNT 347 thou/uL (150-400); POLYS 68.7 % (36.0-66.0); RBC 3.32 mil/uL (4.50-6.00); RDW 13.5 % (10.5-14.5); WBC 6.4 thou/uL (4.0-11.0)
[2021-10-13 09:30] VITALS: BP 130/70
[2021-10-13 09:41] VITALS: BP 130/70
--- NOTE | 2021-10-13 13:22 | NUR ---
Assumed pt care from overnight shift this am. Pt presented alert and oriented to himself only, and presented tired and sleepy during assessment. Pt has been staying in bed during this shift, voicing tiredness, and has been sleeping when rounded on. Pt encouraged to change position hourly at this time. Continues to stay in bed and not participate in group due to this. Medications taken whole in ice cream during assessment. Pt declined breakfast and lunch. Unable to answer questions when prompted due to wanting to go back to sleep. No si/hi noted during rounds. No complaints of pain when asked. No further concerns at this time.
[2021-10-13 19:55] VITALS: BP 145/85
[2021-10-13 20:45] VITALS: BP 161/82
[2021-10-13 21:45] VITALS: BP 145/85
[2021-10-14] VITALS (7 sets, daily range): BP systolic 154–171; BP diastolic 63–91
--- NOTE | 2021-10-14 00:22 | NUR ---
PATIENT HAD A FALL AT 2039 IN HIS ROOM. ALARM WENT OFF AND STAFF HEADED TO ROOM AND SAW CARLO FALLING HITTING HIS HEAD TO THE WALL.PATIENT DENIED PAINS. ASESSMENT WAS DONE NO INJURY NOTED AT THIS TIME. NO PAINS NOTED WITH ROM ON UPER AND LOWER EXT. SWEATBAND DECORATING MACHINE OPERATOR NOTIFIED. ORDER FOR CT-SCAN IN PLACE. SCAN DONE AND REPORT IS NEGATIVE. POST FALL ASSESSMENT DONE. CALL TO FAMILY SPOKE WITH EMERGENCY CONTACT AND . PATIENT IS IN THE DAY AREA FOR CLOSE OBSERVATION. HE TOOK HIS MEDS WHOLE AND CONTINENT OF BOWEL AND BLADDER.LUNGS ARE CLEAR, BS ACTIVE X4 QUAD. ABD IS SOFT, MODERATE SIZE AND NON TENDER.CHAIR IS ALARMED, PATINET IS HYDRATED AND TOILETED PRN. HE DENIES PAINS, SI/AVH/HI. [id number] CHECK IS ONGOING. CONTINUE CARE
--- NOTE | 2021-10-14 04:02 | NUR ---
RN assumed patient care at 0100. At this time pt was observed by this RN to resting calmly in myrna chair in day room. Pt is very high fall risk. Fall precautions are in place. Will continue to monitor.
[2021-10-14 05:47] LABS: ABSOLUTE NEUTROPHILS 4.1 thou/uL (1.4-8.2); BASOPHILS 1.5 % (0.0-2.0); EOSINOPHILS 3.3 % (0.0-3.0); HEMATOCRIT 29.1 % (42.0-52.0); HEMOGLOBIN 9.6 gm/dL (14.0-18.0); LYMPHOCYTES 24.5 % (24.0-44.0); MCH 28.2 pg (26.0-34.0); MCV 85.2 fL (80.0-100.0); MONOCYTES 6.6 % (1.0-8.0); PLATELET COUNT 320 thou/uL (150-400); POLYS 64.1 % (36.0-66.0); RBC 3.41 mil/uL (4.50-6.00); RDW 13.6 % (10.5-14.5); WBC 6.3 thou/uL (4.0-11.0)
[2021-10-14 06:08] LABS: CALCIUM 11.6 mg/dL (8.5-10.1); CREATININE 2.2 mg/dL (0.7-1.3); MAGNESIUM 2.5 mg/dL (1.8-2.4); POTASSIUM 3.8 mmol/L (3.5-5.1)
--- NOTE | 2021-10-14 12:22 | NUR ---
ASSEMBLER AND TESTER ELECTRONICS to attempt starting IV line per MD Almonte orders. Patient is non-compliant with IV start and refuses to allow ASSEMBLER AND TESTER ELECTRONICS to start IV. MD Ann notified of patients non-compliance.
[2021-10-14 14:17] LABS: CALCIUM 11.9 mg/dL (8.5-10.1); CREATININE 2.3 mg/dL (0.7-1.3); PHOSPHORUS 3.8 mg/dL (2.6-4.7)
--- NOTE | 2021-10-14 19:55 | NUR ---
Patient had a witnessed, unassisted fall @1911: Patient was ordered by as 1:1 while awake. QUALITY IMPROVEMENT COORDINATOR (RN) was just with the patient 5 minutes prior to the fall. QUALITY IMPROVEMENT COORDINATOR (RN) had reassessed the patient and the patients IV site, RE-dressing IV site. Patient was snoring, and 1:1 overnight shift had not shown up to the unit at this time. Bed alarm began ringing out, While QUALITY IMPROVEMENT COORDINATOR (RN) was giving report to HUNG Hernadez. QUALITY IMPROVEMENT COORDINATOR (RN) quickly assisted to patients room, where patient was seen walking beside the bed. QUALITY IMPROVEMENT COORDINATOR (RN) went to reach for the patient as the patient began to lose balance. QUALITY IMPROVEMENT COORDINATOR (RN) was not able to catch patient in time. Patient fell backwards onto his bottom, while hitting his positior side of the head on the side table to to the bed. QUALITY IMPROVEMENT COORDINATOR (RN) called for help at this time. ALISE Rojas and HUNG Hernadez came to bedside. HUNG Hernadez completed bedside post-fall assessment with V/S. QUALITY IMPROVEMENT COORDINATOR (RN) paged @1911, respoded @1914 - Orders given for patient to be 1:1 at all times, due to patient being a danger to self. As patient has suffered multiple falls. QUALITY IMPROVEMENT COORDINATOR (RN) then called House Supervisior @1913 informing of the patient fall. QUALITY IMPROVEMENT COORDINATOR (RN) had previously called @1906 in regards to where the oncoming 1:1 sitter was at, unsuccessfully able to contact Cab Supervisor. QUALITY IMPROVEMENT COORDINATOR (RN) called JAYE Charles @1909 & again @1924. Unable to get in contact with BOAT LABORER, at which time QUALITY IMPROVEMENT COORDINATOR (RN) called Cab Supervisor @1927. Unable to connect with warehouse logistics coordinator and message was left. Report was in progress and hand-off was completed at the time of fall on patient. V/S reported to QUALITY IMPROVEMENT COORDINATOR (RN) by HUNG Hernadez where V/S were entered as follows: BP- 164/91 P-97 RR-18 O2-91% Care to be recieved by HUNG Hernadez. High-Fall risk precautions are in place, 1:1 is sitting with patient. Sitter had arrivied to sit with patient @1913. JAYE Charles and Cab Supervisor to follow up on patient.
--- NOTE | 2021-10-14 23:42 | NUR ---
PATIENT CARE WAS RESUMED A 1899. HE IS ALERT WITH SOME CONFSSION. HE HAD A FALL DURING SHIFT CHANGE. CHARGE NURSE AT THE TIME CALLED FOR HELP AND ONCOMING NURSE CAME INTO ROOM SEEING PATIENT ON THE FLOOR IN A SUPINE POSITION. NO INJURY NOTED. DENIES PAINS WITH ROM ON UPPER AND LOWER EXTREMITIES. ABD IS SOFT, FLAT AND NONE TENDER.CALL TO FOR UPDATENO RESPONSE. EMERGENCY CONTACT WAS NOTIFED OF FALL.SITTER IN ROOM AT THIS TIME. POST FALL ASSESSMENT DONE. BED IS LOW, LOCKED AND ALARMED WITH YELLOW TOP AND SOCKS ON. HE TOOK HIS MEDS WHOLE . WAS VERBALLY ABUSIVE TO STAFF. [id number] CHECK IS ONGOING. CONTINUE CARE.
[2021-10-15 07:05] LABS: CALCIUM 11.6 mg/dL (8.5-10.1); CREATININE 2.4 mg/dL (0.7-1.3); POTASSIUM 3.8 mmol/L (3.5-5.1)
[2021-10-15 13:11] VITALS: BP 156/68
--- NOTE | 2021-10-15 14:06 | NUR ---
Resummed Care of patient @0700: Patient was located in the dinning moore along side peers, seated in a Angie-Chair. No S/O acute distress noted. A&O*1 - confused and delusional. Patient denied SI/HI/AVH. AVH visualized by CRYSTALLIZER OPERATOR, patient seen reaching and talking to the air around him. Patient is impulsive with cares. At one moment patient is calm, cooperative and suddenly the patient will began yelling at staff and cussing at staff. Patient was medication compliant. At the start of shift patient had a 22G IV in the Left AC, which was S.L. Orders recieved for 1000cc bag of N.S @250cc/hr. Patient tolerated about 800cc of fluids then became agressive, ripping the IV out. IV was visualzied by another RN upon removal to be intact. Arm was secured, and IV was discountined. BSP*4.NT.ND Lung sounds are clear, diminsihed. Denied Pain, SOB, CP. Non-productive cough is present. V/S present hypertensive, otherwise stable. Patient has a 1:1 with him at all times, due to patient being a danger to himself with multiple fulls pre & post admission. CRYSTALLIZER OPERATOR is pushing fluids, patient only wants to drink chocolate milk or chocolate ensure. Labs were reviewed today and reported to MD Ann of small increase on patients BUN, Creatine. High-Fall precautions are in place, will continue to monitior per [facility] Protocol.
[2021-10-15 21:33] VITALS: BP 171/67
--- NOTE | 2021-10-15 22:45 | NUR ---
RESUMMED CARE FROM DAY SHIFT THIS EVENING PATIENT IS ALERT TO SELF ONLY. PATIENT IN ROOM WHILE DOING HIS ASSESSMENT CALLING ME A MARGARETHKING TALISHAGER AND WAS NOT COOPERATIVE WITH ASSESSMENT. PATIENTS ONE TO ONE TOLD ME PATIENT WAS WET WHILE SITTING IN THE DAY ROOM. I TOOK HIM TO HIS ROOM TO CHANGE HIM HE BECAME COMBATIVE HTTING KICKING AND PINCHING MY HANDS. IT TOOK 3 STAFF TO CHANGE AND CLEAN HE UP. PATIENT PURPOSELY URINATED ON FLOOR WHILE STANDING AND STARTED LAUGHING. HE HAD A BOWEL MOVEMENT WHILE SITTING ON THE TOILET. PATIENT REFUSED NIGHT MEDICATION STATING HE IS NOT TAKING THIS SHIT. IT APPEARS THAT PATIENT IS AWARE OF WHAT HE IS DOING. I TOLD THE PATIENT YOU DO NOT TREAT PEOPLE THIS WAY WHO ARE CARING FOR HIM. I PUT PATIENT IN BED FOR THE NIGHT WITH ONE TO ONE STAFF WITH PATIENT. WILL CONTINUE TO MONITOR PATIENT FOR SAFETY AND BEHAVIORS.
--- NOTE | 2021-10-16 01:35 | NUR ---
This RN assumed care at 0100. At this time pt was resting in bed calmly and is on 1:1, sitter is in room with pt. Pt is very high fall risk. Fall precautions are in place. Will continue to monitor.
--- NOTE | 2021-10-16 08:45 | H ---
[facility] [place] [address] [place] [address] HISTORY AND PHYSICAL Name: SCOTT ZAVALA Room #: 528B-B ADM IN M.R.#: [id number] Admission: 10/09/21 Attend Phys: Spike Ann DO Discharge: Date of : 48 Report #: [id number] THIS REPORT FOR: cc: Joselyn Gonsales MD, Nicolle MD Kerstein,Spike Maradiaga DO ~ DATE OF SERVICE: 10/09/2021 INPATIENT GERIATRIC PSYCHIATRIC EVALUATION ATTENDING PSYCHIATRIST: Spike Ann DO DECKHAND ENGINEER: Teresa De La Fuente APRN and Ajay Schulz MD and his hospitalist team. SOURCES OF INFORMATION: Very brief interview with the patient, discussions with Dr. Moreno, consulting psychiatrist, she had on the Acute Rehabilitation Unit, numerous medical records here at [facility]. The patient does not have a DPOA. His Joby is contact point. Of note, the patient believes it is May, believes the day is Thursday. He is grossly disoriented, lacking insight to where he was as well as in his medical condition, so his durable power of reefer truck driver for healthcare and durable power of reefer truck driver for general financial matters is enacted at this time. CHIEF COMPLAINT: Unspecified. HISTORY OF PRESENT ILLNESS: This is a 71-year-old male who was discharged today from the [address] [place] [address] acute rehabilitation unit to Geriatric Psychiatry due to concern for progressive deteriorating dementia, behavioral problems while he was on the acute rehabilitation unit. The patient while on [address] exhibited behavioral changes and agitation and needed to be discharged to a Angie-Psych. The PMR doctor, Dr. Saba, would like him to have occupational and physical therapy continued. His current level of function for bed mobility and transfer is mainly supervision and for walking is contact guard assist up to 500 feet. ADDITIONAL BACKGROUND: He was admitted to the [facility] on 09/22/2021 with altered mental status, noted the residential facility he was sent there after a hospital stay for falls with head injury, yessica in the scalp. On baseline, he was alert and oriented x4. He became combative with the staff at the SNF. Upon admission to the ER, they noted ROMAIN and hypercalcemia of 12.2 on admission, the creatinine of 2.9. Nephrology, Neurology, Psychiatry, Hematology were involved. He was given IV fluids. Hydrochlorothiazide was [facility] [address] [place] [address] HISTORY AND PHYSICAL Name: SCOTT ZAVALA Room #: 528B-B ADM IN [facility]#: [id number] Admission: 10/09/21 Attend Phys: Spike Ann DO Discharge: Date of : 48 Report #: [id number] discontinued. The patient initially required restraints on the medical unit and medications for behavior that resolved. There was an MRI head done, which showed no acute process, chronic ischemic changes. He was diagnosed with encephalopathy related to metabolic factors and improved with correction of calcium and renal function. Interestingly, he also received IV Venofer for his iron deficiency anemia. Prior to SNF stay, he was at home with spouse, no stairs, used no assistive device. The patient while on rehabilitation had some swallowing impairment and needed to take one pill at that time, but was on a regular diet. REVIEW OF SYSTEMS: A 14-point done was completed by Dr. Saba. Denied headache or vision changes. Denies cough, shortness of air or chest pain. Reports poor appetite. No nausea or abdominal pain. No numbness or tingling. Denies acute pains. Additional information from the past medical visits she had here at [facility], Nadya is his . Her number is [phone]. ALLERGIES: No known allergies. MEDICAL HISTORY: Includes chronic kidney disease stage III, GFR 30-59, hypertension, hypercalcemia and presumptive dementia. CT head was done back on 09/22/2021, which showed no acute intracranial abnormalities, diffuse age-appropriate cerebral atrophy, posterior scalp yessica interestingly. Chest x-ray was done, which showed no acute cardiopulmonary abnormalities. PSYCHIATRIC HISTORY: Not known precisely. There is some interesting background. He was a [place] , had agent orange exposure. From Dr. Moreno's initial consultation, she was unable to get that much. LABORATORY DATA: His most recent laboratories, hematology on 10/09, white count 6.4, H and H 8.8 and 26.3, platelet count 395. ESR was 60 on 09/24. Chemistry: Sodium 143 on 10/09, potassium 4.4, chloride 106, bicarbonate 29, anion gap 8, BUN 31, creatinine 2.0, estimated GFR 33, glucose 74. A1c 5.9, it was from 09/23. Calcium 10.1 today. Magnesium 2.1 today on 10/09/2021. Irons have been reviewed in the medical chart. Ammonia less than 10 on 10/07. Albumin 2.6 on 10/07, so he is fairly malnourished. TSH 1.017. Folate 10.4. B12 of 541. Urinalysis showed trace blood on 10/02, 1+ leukocyte esterase, some leukocytes and some bacteria. Urine culture from 10/02 grew out Staph aureus, which was pansensitive. Most recent Depakote level on 10/09 is 67. SARS-CoV-2 PCR is not detected on 10/08. PHYSICAL EXAMINATION: VITAL SIGNS: Today, temperature 36.7, pulse 78, respirations 14, BP 118/70, O2 sat 97%. [facility] [address] [place] [address] HISTORY AND PHYSICAL Name: SCOTT ZAVALA Room #: 528B-B ADM IN M.R.#: [id number] Admission: 10/09/21 Attend Phys: Spike Ann, Discharge: Date of : 48 Report #: [id number] MUSCULOSKELETAL: In lap devi, reclined in Angie chair on 1:1 with nurse. MENTAL STATUS EXAMINATION: Well-developed, ill-appearing male, appearing stated age, wearing glasses, unkempt appearance, in yellow full shirt and scrub pants. Attention and concentration limited. Speech normal in rate. Thought process was tangential. Thought content, delusional thinking, focused on being in a store. He is oriented to person, not to time, not to place. Memory not formally tested. Mood and affect was constricted, congruent. Slightly fearful. Again, memory not formally tested. Insight and judgment impaired. Denied suicidal or homicidal ideations. Denied auditory, visual, or tactile hallucinations, but I suspect he is having hallucinations given his delusional statements to me. Fund of knowledge diminished. FORMULATION: A 71-year-old male, voluntary by DPOA admitted to [facility] Unit. PLAN: We will plan for a regular diet, high fall risk, up with assist, he is on standby assist. He will have group therapy, milieu therapy. Hospitalist will continue their assistance, as they did on acute rehabilitation unit. The patient is likely going to need placement in a long-term care facility. Regarding his medications, currently on clonidine patch 0.1 mg transdermal every 7 days, famotidine 40 mg oral daily for GERD, tamsulosin 0.4 mg oral daily for BPH, Seroquel he was getting 150 mg at bedtime and he was on 25 in the afternoon. I added 50 mg at 9:00 a.m. and 3 p.m. In addition, he was given docusate 100 mg p.o. b.i.d. Depakote was 250 in the morning and 500 at night. I made that 500 b.i.d. He did require Haldol 5, Ativan 1 injection this afternoon as he was crawling on floor and not redirectable. Otherwise, house PRNs. Imaging was reviewed during the medical portion of the stay, but he has had since admission here head MRI, head CT, chest x-ray, cervical spine, CT of brain MRI with MRA and an abdominal ultrasound. Estimated length of stay will be 10-21 days. STRENGTHS: He has a DPOA. He is insured. WEAKNESSES: Advancing dementia, several medical comorbidities. Time spent on this case is at least 60 minutes, greater than 50% of time spent on review of records and coordination of care. <ELECTRONICALLY SIGNED> By: Spike Ann DO 10/16/21 0845 [id number] Spike Ann DO /nt
[2021-10-16 09:15] VITALS: BP 151/65
[2021-10-16 10:13] VITALS: BP 151/65
--- NOTE | 2021-10-16 11:19 | NUR ---
RT Progress Note- Alden's engagement with recreational therapy has been minimal since his admission to [facility]. His behaviors have contributed to this, as he has been aggressive both verbally and physically with staff. When fairly calm, Alden has provided very passive engagement. UPPER DOUBLER will encourage continued participation as patient's behaviors become controlled.
--- NOTE | 2021-10-16 16:43 | NUR ---
10/14/2021 - Phone call to Cuca Ashford. Voice message
--- NOTE | 2021-10-16 16:46 | NUR ---
10/15/2021 - Phone call to Cuca Ashford, Dr. Gage aBss and Michael Gonzalez. Voice messages were left for each individual.
--- NOTE | 2021-10-16 17:20 | NUR ---
Assumed pt care from overnight shift this am. Pt presented alert and oriented to self only, and was hostile during assessment, trying to bit staff when medications were passed, though did take medication after prompting. Medication crushed in pudding. Was unable to answer assessment questions, though noted grimace on pt during rounds, and gave pt morphine for pain and discomfort later in day. Pt anxiety controlled by ativan scheduled and prn. No depression noted. No si/hi statements made. Pt has been one to one when awake, and has had a sitter on this shift. No further concerns at this time.
[2021-10-16 19:26] VITALS: BP 142/68
--- NOTE | 2021-10-16 23:35 | NUR ---
At onset of mini shifter pt was sitting in myrna chair in day room. Pt is 1:1 while awake. This shift pt was nonverbal with medical underwriter. Pt took his medication crushed in ice cream, but did not want to eat remainder of ice cream cup for a snack. Pt would not drink water. Pt did not make eye contact; only stared at ceiling when awake. Pt did move his hands to his face to wipe his mouth. Pt does not appear to be in distress at this time. Pt is high fall risk. Fall precations are in place. Will continue to monitor.
[2021-10-17 09:31] VITALS: BP 99/52
--- NOTE | 2021-10-17 15:24 | NUR ---
Hospice referrals sent to [facility]. A call was received from [facility] ([phone]) for additional information. The SW provided the 's contact information. Faith reports their nurse would call at approximately 4:00pm to do a [id number].
--- NOTE | 2021-10-17 17:34 | NUR ---
Assumed patient at 0700, patient is on palliative care waiting for hospice. Patient is sleeping in the myrna chair all day, answer when asking, but fall back to sleep. Patient does not take medications or eat. will continous monitoring.
--- NOTE | 2021-10-18 05:39 | NUR ---
Assumed care of pt at 1900. Pt calm et cooperative this shift. Took medications crushed in pudding without difficulty. Did not observe ambulation this shift as pt was already in bed at start of shift. VSWNL. Health assessment with no abnormalities noted at present time. Unable to assess SI/HI due to pt sedation during shift but does not demonstrate any symptoms of acute emotional distress at present time. Currently resting in bed with eyes closed. Will continue to monitor per unit protocol.
[2021-10-18 07:45] VITALS: BP 158/89
--- NOTE | 2021-10-18 08:44 | NUR ---
Faxed referral to [facility]
--- NOTE | 2021-10-18 09:52 | NUR ---
Laying in recliner without s/o distress. Eyes open but does not track or focus. No response to verbal, tactile or noxious stimuli. Was able to eat two spoons of pudding with depakote and drank 2 oz of H20 and 1 oz ensure. Occassional periods of open mouth breathing with rate in upper 20s but majority of time RR is in upper teens. Breath sounds clear with good aeration. Reg HR auscultated. Color pink with brisk capillary refill and palpable peripheral pulses +2/+4 centrally and +1/+4 peripherally. No edema noted. Brief dry. Active bowel sounds over soft, rounded abdomen. Able to stand with 2 staff assist, weak. Placed on waffle cushion.
[2021-10-18 10:01] VITALS: BP 158/89
--- NOTE | 2021-10-19 16:26 | D ---
[facility] [address] [place] [address] DISCHARGE SUMMARY Name: CSOTT ZAVALA Room #: 528B-B DIS IN M.R.#: [id number] Admission: 10/09/21 Attend Phys: Spike Ann DO Discharge: 10/18/21 Date of : 48 Report #: [id number] THIS REPORT FOR: cc: Joselyn Gonsales MD, Nicolle MD Kerstein,Spike Maradiaga DO ~ DATE OF SERVICE: 10/18/2021 INPATIENT PSYCHIATRIC DISCHARGE SUMMARY ATTENDING PSYCHIATRIST: Spike Ann DO URGENT CARE PHYSICIAN: Teresa De La Fuente APRN DISCHARGE DIAGNOSES: Major neurocognitive disorder, etiology unspecified with behavioral disturbance. The patient is terminal. End-stage global deterioration scale of 7. At time of discharge, the patient had few medical comorbidities, which are acute on chronic renal failure, hypercalcemia, generalized weakness and debility, recent medical admission to the acute rehab admission, Staph UTI, hypertension, hyperlipidemia, BPH, history of agent orange exposure in [place]. The patient is discharging to [facility] for end of life care. His life expectancy is less than 14 days. Comfort feeds. There were no discharge medications since he was going to hospice house. Of note, we did have the patient getting scheduled Ativan 05.mg TID and Roxanol for the last several days on the unit. The patient did have a sacral perirectal stage II decubitus. We were giving saline wash and zinc oxide and q. 2 hour turning at the time of discharge. LABORATORY DATA: Most recent laboratories from 10/14/2021; white count 6.3, H and H 7.6 and 29.1, platelet count 320. Sodium 143, potassium 3.8, chloride 105, bicarbonate 33, anion gap 5, BUN 38, creatinine 2.4. The patient had been down to 2.0 at the time of admission and creeping back up. He did not want intravenous fluid boluses. We discontinued that. Estimated GFR 27, glucose 83, calcium was 11.6 down from a high of over 12. Phosphorus 3.8, magnesium 2.5, total bilirubin 0.2, AST 35, ALT 23, alkaline phosphatase 99, total protein 6.6, albumin 2.6. PTH intact was 12. TOXICOLOGY: Depakote level 60 on 10/13/2021. Once he has essentially stopped eating, drinking and became weak, we moved to discontinue Depakote. Serology at this time, COVID-19 was not detected on 10/11, 10/12, and 10/14 through 10/17. REASON FOR ADMISSION: Back on 10/09/2021, a 71-year-old male, , turns out he did not have a DPOA as originally thought, had been living with his and had several falls and is medically admitted to [address] [place] [address]. [address] [address] DISCHARGE SUMMARY Name: SCOTT ZAVALA Room #: 528B-B [facility] IN M.R.#: [id number] Admission: 10/09/21 Attend Phys: Spike Ann, Discharge: 10/18/21 Date of : 48 Report #: [id number] became agitated over there and was referred for Geriatric Psychiatry admission. HOSPITAL COURSE: Admitted to the Senior Behavioral Health Unit. The patient remained fairly gentle with us, just resistive typically with IVs with a lot of care. He was a high fall risk. He had a couple of family meetings. In addition to his , he had a nephew, Dr. Gage Bass who is an building stonecutter in the [facility] as well as a family friend, Graham Benson involved. I did get a call from his stepson, Michael Denise who is a fire observer in [place], [place] on the day of discharge. Were able to place him in a hospice house as the was really not in a position I think to do any kind of guardianship and conservatorship. The patient's status at the time of discharge is terminal. He was nonverbal for a week, bedridden. VITAL SIGNS: At time of discharge, temperature 36.6, pulse 96, respirations 16, BP 148/89, O2 sat 93%, listed weight 49.64 kg, BMI 16.6. MENTAL STATUS EXAMINATION: Well-developed, ill-appearing male. Attention fair. Concentration impaired. Speech nonverbal. Thought process, thought content, unable to obtain and was not self-injurious. Memory: Unable to be tested. Insight and judgment impaired. Fund of knowledge diminished. Mood and affect are flat, constricted and congruent. Fund of knowledge quite diminished. Prognosis for this patient is poor terminal, hospice house is certainly appropriate. <ELECTRONICALLY SIGNED> By: Spike Ann DO 10/19/21 1626 [id number] Spike Ann, /nt
== END 2021-10-18 13:15 | disposition hospice, inpatient (51) | DRG 884 ==
LOC: SBH
PROVIDERS: Hospitalist; Nurse Practitioner; Nurse Practitioner Family; ADMIT Psychiatry & Neurology Psychiatry; ATTEND Psychiatry & Neurology Psychiatry
DX: F01.51 Vascular dementia, unspecified severity, with behavioral disturbance (principal); E44.0 Moderate protein-calorie malnutrition; N17.9 Acute kidney failure, unspecified; N39.0 Urinary tract infection, site not specified; Z68.1 Body mass index [BMI] 19.9 or less, adult; N18.9 Chronic kidney disease, unspecified; E87.6 Hypokalemia; E83.52 Hypercalcemia; B95.8 Unspecified staphylococcus as the cause of diseases classified elsewhere; N40.0 Benign prostatic hyperplasia without lower urinary tract symptoms; Z66 Do not resuscitate; S30.820A Blister (nonthermal) of lower back and pelvis, initial encounter; Z20.822 Contact with and (suspected) exposure to COVID-19
CPT/HCPCS: 10880